=== PATIENT | female | born 1985 | race Caucasian/White ===

== ENCOUNTER 2021-04-07 12:57 | Emergency (ER) | payer OTHER ==
--- NOTE | 2021-04-07 13:00 | ERPHSYRPT ---
- History of Present Illness Time Seen by Provider: 04/07/21 13:00 Historian: patient, family Exam Limitations: no limitations Physician History: This is a 35-year-old obese white female who is 26 weeks and is a patient of both Dr. Ortega and while he and is injecting herself subcutaneously with prescribed Lovenox during her . She is using the pannus of bilateral lower quadrants. She is having tenderness in the injection site of the left lower quadrant. She has not had any fevers or chills. Because of the tenderness she has been experiencing over the last several days, she stopped using the left lower quadrant subcutaneous and skin region for Lovenox injection. She has no chest pain. She has no shortness of breath. She has no vaginal bleeding. She has no vaginal discharge. She had no nausea vomiting or diarrhea. Abdominal Pain Onset Location: LLQ Pain Radiation: no radiation Severity of Pain-Max: moderate Severity of Pain-Current: mild Modifying Factors: Improves With: nothing Associated Symptoms: denies symptoms Previous symptoms: no prior history Allergies/Adverse Reactions: orange juice Allergy (Verified 04/07/21 13:13) Home Medications: Enoxaparin Sodium [Enoxaparin Sodium] 40 mg SQ Q12HT 04/07/21 [History] Travel Risk - International Travel Have you traveled outside of the country in past 3 weeks: No - Coronavirus Screening Are you exhibiting any of the following symptoms?: No Close contact with a COVID-19 positive Pt in past 14-21 Days: No - Review of Systems Constitutional: No Symptoms Eyes: No Symptoms Ears, Nose, & Throat: No Symptoms Respiratory: No Symptoms Cardiac: No Symptoms Abdominal/Gastrointestinal: No Symptoms Genitourinary Symptoms: No Symptoms Musculoskeletal: No Symptoms Skin: Induration (With associated bruising left lower quadrant. It is superficial. No redness odor or drainage) Neurological: No Symptoms Psychological: No Symptoms Endocrine: No Symptoms Hematologic/Lymphatic: No Symptoms Immunological/Allergic: No Symptoms All Other Systems: Reviewed and Negative - Past Medical History Pertinent Past Medical History: Yes - Past Surgical History Past Surgical History: Yes - Nursing Vital Signs Nursing Vital Signs: Initial Vital Signs Temperature 97.6 F 04/07/21 13:03 Pulse Rate 97 H 04/07/21 13:03 Blood Pressure 117/74 04/07/21 13:03 O2 Sat by Pulse Oximetry 97 04/07/21 13:03 Pain Scale Pain Intensity 0 - Physical Exam General Appearance: no apparent distress, alert, anxiety, obese, other (Patient is happy and laughing) Eye Exam: PERRL/EOMI, eyes nml inspection Ears, Nose, Throat Exam: normal ENT inspection, moist mucous membranes Neck Exam: normal inspection, non-tender, supple, full range of motion Respiratory Exam: airway intact, No chest tenderness, No respiratory distress Gastrointestinal/Abdomen Exam: soft, normal bowel sounds, tenderness (Directly at the left lower quadrant pannus subcutaneous injection site. There is a thickness of induration without obvious abscess present in this area. There is no redness or cellulitis present. There is ecchymosis present. There is no odor and there is no drainage from the site. Patient does ) Pelvic Exam: not done Rectal Exam: not done Back Exam: normal inspection, normal range of motion, No CVA tenderness, No vertebral tenderness Extremity Exam: normal inspection, normal range of motion, pelvis stable Neurologic Exam: alert, oriented x 3, cooperative, site surveyor II-XII nml as tested, normal mood/affect, nml cerebellar function, nml station & gait, sensation nml Skin Exam: ecchymosis (Left lower quadrant, superficial), other (No cellulitis left lower quadrant) Lymphatic Exam: No adenopathy SpO2 Interpretation: normal O2 Delivery: Room Air - Course Nursing assessment & vital signs reviewed: Yes Ordered Tests: Active Orders 24 hr Category Date Time Status ABDOMINAL-LIMITED [US] Stat Exams 04/07/21 13:18 Completed - Progress Progress: unchanged, re-examined Progress Note: 04/07/21 14:23 Ultrasound of abdominal wall tenderness/indurated areanonspecific walled off subcutaneous fluid collection. Counseled pt/family regarding: diagnosis, need for follow-up, rad results - Departure Departure Disposition: Home Clinical Impression: Induration at injection site Condition: Stable Critical Care Time: No Referrals: BRADY ORTEGA [Primary Care Provider] - Additional Instructions: Do not use this site for injection. Keep the area clean daily with soap and water. Warm compresses, not directly on the skin to this area twice a day. Take your antibiotics as prescribed. Follow-up with your prescribing doctor for further management. Prescriptions: Cephalexin Mh 500 mg [Keflex 500 mg] 500 mg PO TID #21 capsule
[2021-04-07 13:13] VITALS: O2SAT 97
[2021-04-07 14:09] VITALS: BP 106/63; PULSE 86
--- NOTE | 2021-04-07 14:19 | XRAY ---
Indication: Left lower quadrant abdominal wall bruising/nodule. Current Lovenox therapy abdominal subcutaneous injections. Two-dimensional targeted soft tissue ultrasound of the left lower quadrant abdominal wall demonstrates a 2.8 x 1.7 x 1.8 cm nonspecific walled off subcutaneous fluid collection without abnormal color Doppler flow. No other solid/cystic mass or abnormal fluid collection.
== END 2021-04-07 14:38 | disposition home or self-care (01) ==
LOC: ED 12:57
DX: R23.4 Changes in skin texture (principal); R10.32 Left lower quadrant pain; Z33.1 Pregnant state, incidental
CPT/HCPCS: 76705; 99284

== ENCOUNTER 2022-04-09 17:39 | Emergency (ER) | payer BC, OTHER ==
[2022-04-09 18:47] VITALS: O2SAT 99
[2022-04-09 19:20] VITALS: BP 100/71; PULSE 77
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
--- NOTE | 2022-04-10 08:35 | XRAY ---
Indication: Left leg numbness 2 months. No acute injury. Multiple contiguous axial images obtained through the lumbar spine. Sagittal and coronal reformatted images obtained. Comparison: None There has been L4-L5 laminectomy and posterior fusion with intact bilateral fusion hardware producing extreme beam artifact limiting these levels. L5-S1 level demonstrates spinal canal and bilateral foraminal narrowing due to broad-based disc bulge and moderate bilateral degenerative facet hypertrophy. Remaining levels are negative for acute fracture, suspicious bony lesions, or large disc herniation. Sagittal and coronal reformatted images demonstrate normal lumbar alignment with vertebral body height/disc spaces maintained. Tiny superior L2 Schmorl node. No acute compression fracture or subluxation. Visualized noncontrasted soft tissues are unremarkable. Impression: 1. L4-L5 laminectomy with intact posterior fusion hardware producing beam artifact. 2. L5-S1 degenerative disc disease and tiny L2 Schmorl node. 3. Remaining CT lumbar spine without contrast exam is negative.
== END 2022-04-09 19:54 | disposition home or self-care (01) ==
LOC: ED 17:39
DX: M54.32 Sciatica, left side (principal); Z72.0 Tobacco use; Z28.310 Unvaccinated for COVID-19
CPT/HCPCS: 72131; 99283

== ENCOUNTER 2024-02-26 09:24 | Emergency (ER) | payer BC, OTHER ==
--- NOTE | 2024-02-26 09:28 | ERPHSYRPT ---
- History of Present Illness Time Seen by Provider: 02/26/24 09:28 Source: patient Exam Limitations: no limitations Physician History: This is a 38-year-old white female patient who woke up 2 days ago and had right posterior neck pain that has traveled into the [facility]. Patient has a history of sciatica in the past. Her neck is stiff and she is having trouble turning her head to and fro. She also states that she has had intermittent facial numbness. Patient smokes tobacco daily and occasionally uses marijuana. She did not hit her head. Patient drove herself into the emergency department today Timing/Duration: day(s), intermittent Method of Injury: other (No injury) Quality: sharp, aching Back Pain Location: paraspinous muscles (Cervical spine right side greater than left side) Severity of Pain-Max: moderate Severity of Pain-Current: mild Modifying Factors: Improves With: movement Associated Symptoms: denies symptoms Previous symptoms: no prior history Allergies/Adverse Reactions: diazepam [From Valium] Allergy (Verified 04/09/22 17:42) orange juice Allergy (Verified 04/09/22 17:42) Hx Influenza Vaccination/Date Given: No Hx Pneumococcal Vaccination/Date Given: No Travel Risk - International Travel Have you traveled outside of the country in past 3 weeks: No - Emerging Infectious Disease Are you exhibiting symptoms associated with any current EIDs: No - Review of Systems Constitutional: No Symptoms Eyes: No Symptoms Ears, Nose, & Throat: No Symptoms Respiratory: No Symptoms Cardiac: No Symptoms Abdominal/Gastrointestinal: No Symptoms Genitourinary Symptoms: No Symptoms Musculoskeletal: Neck Pain (Right side paraspinous muscles into the posterior head) Skin: No Symptoms Neurological: No Symptoms Psychological: Anxiety Endocrine: No Symptoms Hematologic/Lymphatic: No Symptoms Immunological/Allergic: No Symptoms All Other Systems: Reviewed and Negative - Past Medical History Pertinent Past Medical History: Yes Cardiac History: Deep Vein Thrombosis Other Medical History: hx of Pulmonary Embolus - Past Surgical History Past Surgical History: Yes Other Surgical History: spinal fusion - Social History Smoking Status: Current every day smoker How long have you smoked: years Exposure to second hand smoke: Yes Drug Use: marijuana Patient Lives Alone: No - Nursing Vital Signs Nursing Vital Signs: Initial Vital Signs Temperature 97.8 F 02/26/24 09:28 Pulse Rate 97 H 02/26/24 09:28 Respiratory Rate 20 02/26/24 09:28 Blood Pressure 134/74 02/26/24 09:28 O2 Sat by Pulse Oximetry 95 02/26/24 09:28 Pain Scale Pain Intensity [Posterior Neck 9 ] Pain Intensity 7 - Physical Exam General Appearance: no apparent distress, alert, anxiety Eye Exam: PERRL/EOMI, eyes nml inspection Ears, Nose, Throat Exam: normal ENT inspection, moist mucous membranes Neck Exam: normal inspection, supple, full range of motion, other (Pain in the distribution of the right trapezius muscle) Respiratory Exam: normal breath sounds, lungs clear, airway intact, No chest tenderness, No respiratory distress Cardiovascular Exam: regular rate/rhythm, normal heart sounds, normal peripheral pulses Gastrointestinal Exam: soft, normal bowel sounds, No tenderness Pelvic Exam: deferred Rectal Exam: not done Back Exam: normal inspection, normal range of motion, No CVA tenderness, No vertebral tenderness Extremity Exam: normal inspection, normal range of motion, pelvis stable Neurologic Exam: alert, oriented x 3, cooperative, diplomatic courier II-XII nml as tested, normal mood/affect, nml cerebellar function, nml station & gait, sensation nml, No motor deficits Skin Exam: normal color, warm, dry Lymphatic Exam: No adenopathy SpO2 Interpretation: normal O2 Delivery: Room Air - Course Nursing assessment & vital signs reviewed: Yes Ordered Tests: Active Orders 24 hr Category Date Time Status HEAD WITHOUT CONTRAST [CT] Stat Exams 02/26/24 09:55 Completed - Progress Progress: unchanged Progress Note: 02/26/24 10:06 My medical decision making and the assignment of low complexity to this patient's medical issue today is based on review of the patient's past medical history, review the patient's medication list, review of patient drug allergy list, history present illness and physical findings on examination. The workup in this patient includes CT scan of the head without contrast. Differential diagnosis includes migraine headache, muscle strain/cervical spine strain 02/26/24 10:50 CT scan of the head without contrast was interpreted by the radiologist and I reviewed the impression. This is a normal CT scan of the head without contrast. Counseled pt/family regarding: diagnosis, need for follow-up, rad results Medical Desision Making - Diagnostic Testing Diagnostic test were ordered, analyzed, and reviewed by me: Yes Radiological Interpretation: Reviewed by me, Teleradiologist Report - Risk of complications The pt has a mod risk of morbidity or mortality based on: Need for prescription drug management - Departure Departure Disposition: Home Clinical Impression: Acute strain of neck muscle Condition: Stable Critical Care Time: No Referrals: BRADY LANE [Primary Care Provider] - Follow up/PCP as directed Additional Instructions: Alternate ice and heat to area of tenderness. Take the medication as prescribed. Call your primary care provider today, 02/26/2024, to make arrangements for follow-up appointment to be seen in the next 3 to 5 days. You may also add Tylenol 650 mg orally every 4 hours and use of the TENS unit to help relieve your discomfort. Prescriptions: Prednisone 10 mg [Deltasone 10 mg] 10 mg PO TID #12 tablet Orphenadrine Citrate 100 mg [Norflex 100 MG Tablet] 100 mg PO BID #10 tab
[2024-02-26 10:38] VITALS: TEMP 97.7
--- NOTE | 2024-02-26 10:44 | XRAY ---
Indication: Headache and facial numbness. Multiple contiguous axial images obtained through the head without contrast. Comparison: None Normal appearing brain parenchyma, ventricles, and bony calvarium. Visualized paranasal sinuses and mastoid air cells are clear. Impression: Normal CT head without contrast exam.
[2024-02-26 11:12] VITALS: BP 114/66; PULSE 80; RESP 16; O2SAT 100
== END 2024-02-26 11:12 | disposition home or self-care (01) ==
LOC: ED 09:24
DX: S16.1XXA Strain of muscle, fascia and tendon at neck level, initial encounter (principal); R51.9 Headache, unspecified; Z72.0 Tobacco use
CPT/HCPCS: 70450; 99283

== ENCOUNTER 2024-12-02 06:27 | Emergency (ER) | payer OTHER ==
[2024-12-02 06:42] VITALS: PULSE 106; RESP 19; TEMP 98.4
[2024-12-02 07:27] VITALS: O2SAT 97
[2024-12-02] MEDS ORDERED: Norflex 60 MG/2 ML ONE (07:37)
[2024-12-02] MEDS ORDERED: TORAdol 30 mg Injection ONE (07:37)
[2024-12-02 07:38] LABS: Absolute Neutrophil Ct (ANC) 4.61 x10^3/uL (1.56-6.13); BASOPHIL % 0.5 % (0.1-1.2); Basophil (Absolute #) 0.04 x10^3/uL (0.01-0.08); Eosinophil % 1.1 % (0.7-5.8); Eosinophil (Absolute #) 0.08 x10^3/uL (0.04-0.36); Hematocrit 41.3 % (34.1-44.9); Hemoglobin 12.8 g/dL (11.2-15.7); IMMATURE GRAN # 0.02 x10^3u/L (0.001-0.031); IMMATURE GRAN % 0.3 % (0.001-0.429); Lymphocyte (Absolute #) 2.11 x10^3/uL (1.18-3.74); Lymphocytes % 27.9 % (19.3-51.7); Mean Cell Volume 76.9 fL (79.4-94.8); Mean Corpuscular Hemoglobin 23.8 pg (25.6-32.2); Mean Platelet Volume 10.7 fL (9.4-12.3); Monocyte (Absolute #) 0.69 x10^3/uL (0.24-0.86); Monocytes % 9.1 % (4.7-12.5); Neutrophil % 61.1 % (34.0-71.1); Platelet Count 319 x10^3/uL (182-369); Red Blood Count 5.37 x10^6/uL (3.93-5.22); Red Cell Distribution Width 15.9 % (11.7-14.4); White Blood Count 7.6 x10^3/uL (3.98-10.04)
--- NOTE | 2024-12-02 07:38 | ERPHSYRPT ---
- History of Present Illness Time Seen by Provider: 12/02/24 07:34 Source: patient Exam Limitations: no limitations Patient Subjective Stated Complaint: c/o back pain Triage Nursing Assessment: patient brought to ED with c/o right sided lower back pain. patient stated that yesterday she went to stand up and had a shooting pain in her lower back. patient rates pain 8/10. tenderness and pain with touch and certain movements, pulses normal in all extremeties, skin w/n/d, vitals wnl, gait steady, patient doesn't appear to be in any distress at this time. Physician History: 39-year-old female with history of chronic back pain with spinal fusion presented to the ER with complaint of sudden onset right flank/right lower back pain sharp shooting moderate to severe started when she is suddenly started up. No radiation to right lower extremity. No numbness tingling or weakness of lower extremities, no loss of bowel or bladder control/saddle anesthesia. Reports no nausea or vomiting. Denies any urinary complaints. Does have history of kidney stones patient reports her pain different than her routine back pain and kidney stone pain. Denies any fall or trauma. Allergies/Adverse Reactions: diazepam [From Valium] Allergy (Verified 12/02/24 06:43) Hives orange juice Allergy (Verified 12/02/24 06:43) Hives Hx Tetanus, Diphtheria Vaccination/Date Given: Yes Hx Influenza Vaccination/Date Given: No Hx Pneumococcal Vaccination/Date Given: No Travel Risk - International Travel Have you traveled outside of the country in past 3 weeks: No - Emerging Infectious Disease Are you exhibiting symptoms associated with any current EIDs: No - Review of Systems Constitutional: No Symptoms Ears, Nose, & Throat: No Symptoms Respiratory: No Symptoms Cardiac: No Symptoms Abdominal/Gastrointestinal: No Symptoms Genitourinary Symptoms: No Symptoms Musculoskeletal: Back Pain Skin: No Symptoms Neurological: No Symptoms Endocrine: No Symptoms - Past Medical History Pertinent Past Medical History: Yes Neurological History: No Pertinent History ENT History: No Pertinent History Cardiac History: Deep Vein Thrombosis Respiratory History: No Pertinent History Endocrine Medical History: No Pertinent History Musculoskeletal History: No Pertinent History GI Medical History: Gallbladder Disease History: No Pertinent History Psycho-Social History: No Pertinent History Female Reproductive Disorders: No Pertinent History Other Medical History: hx of Pulmonary Embolus, kidney stones - Past Surgical History Past Surgical History: Yes Other Surgical History: spinal fusion - Female History Hx Last Menstrual Period: a month ago Hx Now: No - Social History Smoking Status: Current some day smoker Drug Use: marijuana - Social Determinants of Health Will the patient participate in the screening: Yes Do you worry about a steady place to live?: No Do you have any problems with any of the following?: No known problems In the past 12 months,have you had to go without utilities?: No Transportation Issues: No Has anyone in your support network made you feel unsafe?: No Have you or anyone in your house had to go w/o enough food: No - Nursing Vital Signs Nursing Vital Signs: Initial Vital Signs Temperature 98.4 F 12/02/24 06:32 Pulse Rate 106 H 12/02/24 06:32 Respiratory Rate 19 12/02/24 06:32 Blood Pressure 130/80 12/02/24 06:32 O2 Sat by Pulse Oximetry 98 12/02/24 06:32 Pain Scale Pain Intensity [Right Back] 8 Pain Intensity 8 - Physical Exam General Appearance: no apparent distress Eye Exam: PERRL/EOMI Ears, Nose, Throat Exam: normal ENT inspection Neck Exam: normal inspection, full range of motion Respiratory Exam: normal breath sounds, lungs clear Cardiovascular Exam: regular rate/rhythm, normal heart sounds Gastrointestinal Exam: soft, normal bowel sounds, tenderness (Right flank) Back Exam: normal inspection, normal range of motion, CVA tenderness (Right side), muscle spasm (Right sacroiliac area/lumbar paraspinal area. No lumbar spinal tenderness), No vertebral tenderness Extremity Exam: normal inspection, normal range of motion Neurologic Exam: alert, oriented x 3, cooperative Skin Exam: normal color SpO2 Interpretation: normal SpO2: 97 O2 Delivery: Room Air Ordered Tests: Active Orders 24 hr Category Date Time Status ABDOMEN AND PELVIS W/0 CONTRAS [CT] Stat Exams 12/02/24 07:17 Completed CBC W DIFF Stat Lab 12/02/24 07:25 Completed CMP Stat Lab 12/02/24 07:25 Completed CULTURE,URINE Stat Lab 12/02/24 07:26 Received HCG QUALITATIVE, SERUM Stat Lab 12/02/24 07:25 Completed LIPASE Stat Lab 12/02/24 07:25 Completed LIPASE Stat Lab 12/02/24 09:16 Ordered UA W/RFX UR CULTURE Stat Lab 03/05/25 07:26 Completed Medication Summary Discontinued Medications Generic Name Dose Route Start Last Admin Trade Name Miguel PRN Reason Stop Dose Admin Ketorolac Tromethamine 30 mg 12/02/24 07:18 12/02/24 07:47 Ketorolac Tromethamine 30 Mg/Ml Inj IV 12/02/24 07:19 Not Given STAT ONE Ketorolac Tromethamine Confirm 12/02/24 07:37 Ketorolac Tromethamine 30 Mg/Ml Inj Administered 12/02/24 07:38 Dose 30 mg .ROUTE .STK-MED ONE Ketorolac Tromethamine 30 mg 12/02/24 07:46 12/02/24 07:47 Ketorolac Tromethamine 30 Mg/Ml Inj IM 12/02/24 07:47 30 mg STAT ONE Administration Orphenadrine Citrate 60 mg 12/02/24 07:18 12/02/24 07:47 Orphenadrine Citrate 60 Mg/2 Ml Vial IV 12/02/24 07:19 Not Given STAT ONE Orphenadrine Citrate Confirm 12/02/24 07:37 Orphenadrine Citrate 60 Mg/2 Ml Vial Administered 12/02/24 07:38 Dose 60 mg .ROUTE .STK-MED ONE Orphenadrine Citrate 60 mg 12/02/24 07:46 12/02/24 07:47 Orphenadrine Citrate 60 Mg/2 Ml Vial IM 12/02/24 07:47 60 mg STAT ONE Administration Lab/Rad Data: Laboratory Result Diagrams 12/02/24 07:25 12/02/24 07:25 Laboratory Results 12/02/24 12/02/24 12/02/24 Range/Units 07:26 07:25 07:25 WBC (3.98-10.04) x10^3/uL RBC (3.93-5.22) x10^6/uL Hgb (11.2-15.7) g/dL Hct (34.1-44.9) % MCV (79.4-94.8) fL MCH (25.6-32.2) pg MCHC (32.2-35.5) g/dL RDW (11.7-14.4) % Plt Count (182-369) x10^3/uL MPV (9.4-12.3) fL Gran % (34.0-71.1) % Immature Gran % (Auto) (0.001-0.429) % Nucleat RBC Rel Count (0.00-0.2) % Eos # (Auto) (0.04-0.36) x10^3/uL Immature Gran # (Auto) (0.001-0.031) x10^3u/L Absolute Lymphs (auto) (1.18-3.74) x10^3/uL Absolute Monos (auto) (0.24-0.86) x10^3/uL Absolute Nucleated RBC (0.00-0.012) x10^3u/L Lymphocytes % (19.3-51.7) % Monocytes % (4.7-12.5) % Eosinophils % (0.7-5.8) % Basophils % (0.1-1.2) % Absolute Granulocytes (1.56-6.13) x10^3/uL Basophils # (0.01-0.08) x10^3/uL Sodium 140 (135-145) mmol/L Potassium 4.2 (3.5-5.1) mmol/L Chloride 105 (98-107) mmol/L Carbon Dioxide 23 (22-30) mmol/L Anion Gap 15.8 H (5-15) MEQ/L BUN 15 (7-17) mg/dL Creatinine 0.61 (0.52-1.04) mg/dL Estimated GFR 116.6 ML/MIN Glucose 106 (74-106) mg/dL Calcium 9.2 (8.4-10.2) mg/dL Total Bilirubin 0.60 (0.2-1.3) mg/dL AST 26 (14-36) U/L ALT 22 (0-35) U/L Alkaline Phosphatase 85 (38-126) U/L Serum Total Protein 7.8 (6.3-8.2) g/dL Albumin 4.6 (3.5-5.0) g/dL Lipase 43 (23-300) U/L Serum HCG, Qual NEGATIVE (NEGATIVE) Urine Color Yellow (Yellow) Urine Appearance Clear (Clear) Urine pH 7.0 (4.6-8.0) Ur Specific [place] 1.025 (1.005-1.030) Urine Protein Negative (Negative) Urine Glucose (UA) Negative (Negative) mg/dL Urine Ketones Negative (Negative) Urine Blood Negative (Negative) Urine Nitrite Negative (Negative) Urine Bilirubin Negative (Negative) Urine Urobilinogen 1.0 A (0.2) mg/dL Ur Leukocyte Esterase Trace A (Negative) U Hyaline Cast (Auto) NONE SEEN (0-2) /LPF Urine Microscopic RBC 6-10 A (0-5) /HPF Urine Microscopic WBC 6-10 A (0-5) /HPF Ur Epithelial Cells Few (None Seen) /HPF Urine Bacteria Moderate A (None Seen) /HPF Urine Culture Reflexed YES (NO) 12/02/24 Range/Units 07:25 WBC 7.6 (3.98-10.04) x10^3/uL RBC 5.37 H (3.93-5.22) x10^6/uL Hgb 12.8 (11.2-15.7) g/dL Hct 41.3 (34.1-44.9) % MCV 76.9 L (79.4-94.8) fL MCH 23.8 L (25.6-32.2) pg MCHC 31.0 L (32.2-35.5) g/dL RDW 15.9 H (11.7-14.4) % Plt Count 319 (182-369) x10^3/uL MPV 10.7 (9.4-12.3) fL Gran % 61.1 (34.0-71.1) % Immature Gran % (Auto) 0.3 (0.001-0.429) % Nucleat RBC Rel Count 0.0 (0.00-0.2) % Eos # (Auto) 0.08 (0.04-0.36) x10^3/uL Immature Gran # (Auto) 0.02 (0.001-0.031) x10^3u/L Absolute Lymphs (auto) 2.11 (1.18-3.74) x10^3/uL Absolute Monos (auto) 0.69 (0.24-0.86) x10^3/uL Absolute Nucleated RBC 0.00 (0.00-0.012) x10^3u/L Lymphocytes % 27.9 (19.3-51.7) % Monocytes % 9.1 (4.7-12.5) % Eosinophils % 1.1 (0.7-5.8) % Basophils % 0.5 (0.1-1.2) % Absolute Granulocytes 4.61 (1.56-6.13) x10^3/uL Basophils # 0.04 (0.01-0.08) x10^3/uL Sodium (135-145) mmol/L Potassium (3.5-5.1) mmol/L Chloride (98-107) mmol/L Carbon Dioxide (22-30) mmol/L Anion Gap (5-15) MEQ/L BUN (7-17) mg/dL Creatinine (0.52-1.04) mg/dL Estimated GFR ML/MIN Glucose (74-106) mg/dL Calcium (8.4-10.2) mg/dL Total Bilirubin (0.2-1.3) mg/dL AST (14-36) U/L ALT (0-35) U/L Alkaline Phosphatase (38-126) U/L Serum Total Protein (6.3-8.2) g/dL Albumin (3.5-5.0) g/dL Lipase (23-300) U/L Serum HCG, Qual (NEGATIVE) Urine Color (Yellow) Urine Appearance (Clear) Urine pH (4.6-8.0) Ur Specific [place] (1.005-1.030) Urine Protein (Negative) Urine Glucose (UA) (Negative) mg/dL Urine Ketones (Negative) Urine Blood (Negative) Urine Nitrite (Negative) Urine Bilirubin (Negative) Urine Urobilinogen (0.2) mg/dL Ur Leukocyte Esterase (Negative) U Hyaline Cast (Auto) (0-2) /LPF Urine Microscopic RBC (0-5) /HPF Urine Microscopic WBC (0-5) /HPF Ur Epithelial Cells (None Seen) /HPF Urine Bacteria (None Seen) /HPF Urine Culture Reflexed (NO) - Progress Progress: improved, re-examined Progress Note: 12/02/24 09:20 39-year-old is evaluated in the ER for right low back pain with some flank tenderness as well. She has negative neuroexam in lower extremities, no cauda equina symptoms. She is given symptomatic treatment with Toradol and Norflex, reevaluation her pain is remarkably improved with improved mobility. Workup showed normal white count, fairly unremarkable chemistries, mild element of UTI and will start her on Keflex. Because of her history of kidney stones and right flank tenderness I have obtained CT abdomen pelvis without contrast which is negative for ureteral stone, does have cholelithiasis but patient has no tenderness. Also has right heterogenous adnexal mass/teratoma/dermoid cyst. Patient does not have any tenderness. I have discussed with Dr. Cardozo about dermoid cyst/teratoma, recommended outpatient follow-up with [facility] for further evaluation. I believe patient's symptoms are more of a acute on chronic low back strain, will continue with NSAIDs and muscle relaxants to go home and outpatient follow- up recommended. Discussed signs symptoms of worsening needing return to ER which she seems understanding. Complexity of problem addressed: Moderate acute Complexity of data reviewed/analyzed: Extensive Risk of morbidity/mortality/complication associated with current patient management: Moderate 12/02/24 09:24 Discussed with DrChandan: Heriberto Counseled pt/family regarding: lab results, diagnosis, need for follow-up, rad results Medical Desision Making - Independent Historian Additional History obtained from: Family - Discussion of managment Care discussed with:: specialist (Dr. Cardozo [facility] ANALYST) Reviewed:: Test results Agreed on:: Treatment plan, need for follow-up Will see patient: In office - Departure Departure Disposition: Home Clinical Impression: Low back strain, Teratoma, UTI (urinary tract infection) Condition: Stable Critical Care Time: No Referrals: ROSALINA NÚÑEZ, [facility] [Primary Care Provider] - Follow up with PCP 1 day BALBIR CARDOZO DO [ACTIVE STAFF] - Follow up/PCP as directed (Call for appointment for reevaluation) Instructions: Low Back Pain (DC) Additional Instructions: Take Tylenol/ibuprofen as needed. Follow-up with primary care/[facility] for reevaluation. Return to ER for worsening pain or if having numbness tingling weakness of lower extremities, loss of bowel or bladder control/saddle anesthesia etc. Prescriptions: Cephalexin Mh 500 mg [Keflex 500 mg] 500 mg PO TID #21 cap
[2024-12-02] MEDS: Norflex 60 MG/2 ML IV ONE (07:47)
[2024-12-02] MEDS: TORAdol 30 mg Injection IV ONE (07:47)
[2024-12-02] MEDS: Norflex 60 MG/2 ML IM ONE (07:47)
[2024-12-02] MEDS: TORAdol 30 mg Injection IM ONE (07:47)
[2024-12-02 07:48] LABS: Appearance Clear (Clear); Bacteria Moderate /HPF (None Seen); Bilirubin Negative (Negative); Blood Negative (Negative); Epithelial Cells Few /HPF (None Seen); Glucose, Urine Negative (Negative); Hyaline Casts NONE SEEN /LPF (0-2); Ketones Negative (Negative); Leukocyte Esterase Trace (Negative); Nitrite Negative (Negative); Protein,Urine Dip Negative (Negative); Specific Gravity 1.025 (1.005-1.030)
[2024-12-02 07:49] LABS: ALBUMIN 4.6 g/dL (3.5-5.0); ANION GAP 15.8 MEQ/L (5-15); BILIRUBIN,TOTAL 0.6 mg/dL (0.2-1.3); Calcium 9.2 mg/dL (8.4-10.2); Creatinine 1 0.61 mg/dL (0.52-1.04); EST GLOMERULAR FILTRATION RATE 116.6 ML/MIN; HCG SERUM TEST NEGATIVE (NEGATIVE); Potassium 4.2 mmol/L (3.5-5.1); Total Protein 7.8 g/dL (6.3-8.2)
--- NOTE | 2024-12-02 08:53 | XRAY ---
Indication: Pain. History kidney stones. Multiple contiguous axial images obtained through the abdomen and pelvis without contrast. Comparison: None Lung bases clear. Heart not enlarged. Noncontrasted stomach and bowel loops appears nonobstructed with normal appendix. There is a right adnexa heterogeneous mass measuring at least 7.7 x 4.3 x 5.0 cm demonstrating soft tissue, fat, and calcifications favoring ovarian dermoid cyst/teratoma. Gallbladder demonstrates a few gallstones, largest 2.3 cm. Nonobstructing 4 mm right lower renal calculus. Remaining liver, pancreas, spleen, adrenal glands, kidneys, ureters, bladder, uterus, and aorta are unremarkable for noncontrast exam. Osseous structures intact with minimal/mild generative changes throughout spine, L4-L5 fusion/laminectomy with grossly intact posterior hardware. Impression: 1. Right adnexa heterogeneous mass as detailed favoring ovarian dermoid cyst/teratoma. 2. Cholelithiasis. Sonogram may yield further information if clinically warranted. 3. Incidental nonobstructing right renal micro-calculus and chronic bony findings.
[2024-12-02 09:27] VITALS: BP 105/74
== END 2024-12-02 09:36 | disposition home or self-care (01) ==
LOC: ED 06:27
DX: S39.012A Strain of muscle, fascia and tendon of lower back, initial encounter (principal); D39.8 Neoplasm of uncertain behavior of other specified female genital organs; N39.0 Urinary tract infection, site not specified; M54.50 Low back pain, unspecified; R10.9 Unspecified abdominal pain; Z79.899 Other long term (current) drug therapy; Z72.0 Tobacco use
CPT/HCPCS: 36415; 74176; 80053; 81001; 83690; 84703; 85025; 87086; 96372; 99284; J1885; J2360

== ENCOUNTER 2024-12-18 10:25 | Emergency (ER) | payer OTHER ==
--- NOTE | 2024-12-18 10:27 | ERPHSYRPT ---
- History of Present Illness Time Seen by Provider: 12/18/24 10:27 Historian: patient, family Exam Limitations: no limitations Physician History: This is an overweight 39-year-old white female patient who arrives by private vehicle and is a patient of nurse practitioner Sheela with the complaint of right upper quadrant abdominal pain and right flank pain that began last evening. Patient admits to eating chicken and pasta as well as 2 slices of pizza. She has known cholelithiasis, known right renal micro calculus and a right adnexal mass favoring ovarian dermoid cyst over teratoma. Patient has associated nausea and vomiting symptoms as well. She does not have chest pain. She does not have shortness of breath. She has no lower abdominal pain or pelvic pain. Patient has a history of pulmonary embolus and DVT but is not on any anticoagulation therapy at this time. She occasionally uses marijuana and is a daily smoker of tobacco. She is on no medications at this time. She is allergic to diazepam. Timing/Duration: yesterday Activities at Onset: none Quality: sharpness Abdominal Pain Onset Location: RUQ, flank (Right side) Severity of Pain-Max: moderate Severity of Pain-Current: moderate Modifying Factors: Improves With: vomiting Associated Symptoms: loss of appetite, nausea, vomiting, No chest pain, No fever/chills, No shortness of breath Previous symptoms: same symptoms as today, recently seen, recently treated Allergies/Adverse Reactions: diazepam [From Valium] Allergy (Verified 12/18/24 10:35) Hives orange juice Allergy (Verified 12/18/24 10:35) Hives Hx Tetanus, Diphtheria Vaccination/Date Given: Yes Hx Influenza Vaccination/Date Given: No Hx Pneumococcal Vaccination/Date Given: No Travel Risk - International Travel Have you traveled outside of the country in past 3 weeks: No - Emerging Infectious Disease Are you exhibiting symptoms associated with any current EIDs: No - Review of Systems Constitutional: No Symptoms Eyes: No Symptoms Ears, Nose, & Throat: No Symptoms Respiratory: No Symptoms Cardiac: No Symptoms Abdominal/Gastrointestinal: Abdominal Pain (Upper quadrant) Genitourinary Symptoms: Flank Pain (Right side flank pain) Musculoskeletal: No Symptoms Skin: No Symptoms Neurological: No Symptoms Psychological: No Symptoms Endocrine: No Symptoms Hematologic/Lymphatic: No Symptoms Immunological/Allergic: No Symptoms All Other Systems: Reviewed and Negative - Past Medical History Pertinent Past Medical History: Yes Neurological History: No Pertinent History ENT History: No Pertinent History Cardiac History: Deep Vein Thrombosis Respiratory History: No Pertinent History Endocrine Medical History: No Pertinent History Musculoskeletal History: No Pertinent History GI Medical History: Gallbladder Disease History: No Pertinent History Psycho-Social History: No Pertinent History Female Reproductive Disorders: No Pertinent History Other Medical History: hx of Pulmonary Embolus, kidney stones - Past Surgical History Past Surgical History: Yes Other Surgical History: spinal fusion - Female History Hx Last Menstrual Period: a month ago - Social History Smoking Status: Current some day smoker Drug Use: marijuana - Social Determinants of Health Will the patient participate in the screening: Yes Do you worry about a steady place to live?: No In the past 12 months,have you had to go without utilities?: No Transportation Issues: No Has anyone in your support network made you feel unsafe?: No Have you or anyone in your house had to go w/o enough food: No - Nursing Vital Signs Nursing Vital Signs: Initial Vital Signs Temperature 98.4 F 12/18/24 10:37 Pulse Rate 80 12/18/24 10:37 Respiratory Rate 20 12/18/24 10:37 Blood Pressure 146/104 12/18/24 10:37 O2 Sat by Pulse Oximetry 100 12/18/24 10:37 Pain Scale Pain Intensity 9 - Physical Exam General Appearance: no apparent distress, alert, anxiety Eye Exam: PERRL/EOMI, eyes nml inspection Ears, Nose, Throat Exam: normal ENT inspection, moist mucous membranes Neck Exam: normal inspection, non-tender, supple Respiratory Exam: airway intact, No chest tenderness, No respiratory distress Cardiovascular Exam: regular rate/rhythm, normal heart sounds, normal peripheral pulses Gastrointestinal/Abdomen Exam: soft, normal bowel sounds, tenderness (Right upper quadrant to palpation), guarding (Right upper quadrant to palpation), No rebound Pelvic Exam: not done Rectal Exam: not done Back Exam: normal inspection, normal range of motion, No CVA tenderness Extremity Exam: normal inspection, normal range of motion, pelvis stable Neurologic Exam: alert, oriented x 3, cooperative, marine scientist II-XII nml as tested, nml cerebellar function, nml station & gait, sensation nml Skin Exam: normal color, warm, dry Lymphatic Exam: No adenopathy SpO2 Interpretation: normal O2 Delivery: Room Air - Course Nursing assessment & vital signs reviewed: Yes Ordered Tests: Active Orders 24 hr Category Date Time Status IV Insertion STAT Care 12/18/24 11:05 Active ABDOMEN AND PELVIS W/0 CONTRAS [CT] Stat Exams 12/18/24 11:06 Completed AMYLASE Stat Lab 12/18/24 Completed CBC W DIFF Stat Lab 12/18/24 Completed CMP Stat Lab 12/18/24 Completed CULTURE,URINE Stat Lab 12/18/24 12:40 Received HCG QUALITATIVE, SERUM Stat Lab 12/18/24 Completed LIPASE Stat Lab 12/18/24 Completed Lactic Acid Stat Lab 12/18/24 11:17 Completed UA W/RFX UR CULTURE Stat Lab 12/18/24 12:40 Completed Medication Summary Generic Name Dose Route Start Last Admin Trade Name Freq PRN Reason Stop Dose Admin Ceftriaxone Sodium 1 gm in 100 mls @ 200 mls/hr 12/18/24 13:20 Rocephin 1 Gm / 100 Ml Nacl IV 12/18/24 13:49 STAT ONE Tamsulosin HCl 0.4 mg 12/19/24 12:36 12/18/24 12:47 Tamsulosin Hcl 0.4 Mg Cap PO 12/19/24 12:37 0.4 mg STAT ONE Administration Discontinued Medications Generic Name Dose Route Start Last Admin Trade Name Freq PRN Reason Stop Dose Admin Diphenhydramine HCl 25 mg 12/18/24 12:35 12/18/24 12:51 Diphenhydramine Hcl 50 Mg/Ml Vial IV 12/18/24 12:36 25 mg STAT ONE Administration Diphenhydramine HCl Confirm 12/18/24 12:45 Diphenhydramine Hcl 50 Mg/Ml Vial Administered 12/18/24 12:46 Dose 50 mg .ROUTE .STK-MED ONE Hydromorphone HCl 1 mg 12/18/24 11:05 12/18/24 11:15 Hydromorphone 1 Mg/1ml Inj IV 12/18/24 11:06 1 mg STAT ONE Administration Hydromorphone HCl Confirm 12/18/24 11:14 Hydromorphone 1 Mg/1ml Inj Administered 12/18/24 11:15 Dose 1 mg .ROUTE .STK-MED ONE Sodium Chloride 1,000 mls @ 999 mls/hr 12/18/24 11:05 12/18/24 11:15 Sodium Chloride 0.9% 1000 Ml IV 12/18/24 12:05 999 mls/hr .Q1H1M STA Administration Sodium Chloride Confirm 12/18/24 11:14 Sodium Chloride 0.9% 1000 Ml Administered 12/18/24 11:15 Dose 1,000 mls @ ud .ROUTE .STK-MED ONE Ketorolac Tromethamine 30 mg 12/18/24 12:35 12/18/24 12:50 Ketorolac Tromethamine 30 Mg/Ml Inj IV 12/18/24 12:36 30 mg STAT ONE Administration Ketorolac Tromethamine Confirm 12/18/24 12:44 Ketorolac Tromethamine 30 Mg/Ml Inj Administered 12/18/24 12:45 Dose 30 mg .ROUTE .STK-MED ONE Ondansetron HCl 4 mg 12/18/24 11:05 12/18/24 11:15 Ondansetron Hcl 4 Mg/2 Ml Vial IV 12/18/24 11:06 4 mg STAT ONE Administration Ondansetron HCl Confirm 12/18/24 11:14 Ondansetron Hcl 4 Mg/2 Ml Vial Administered 12/18/24 11:15 Dose 4 mg .ROUTE .STK-MED ONE Prochlorperazine Edisylate 5 mg 12/18/24 12:35 12/18/24 12:53 Prochlorperazine Edisylate 10 Mg/2 Ml Vial IV 12/18/24 12:36 5 mg STAT ONE Administration Prochlorperazine Edisylate Confirm 12/18/24 12:45 Prochlorperazine Edisylate 10 Mg/2 Ml Vial Administered 12/18/24 12:46 Dose 10 mg .ROUTE .STK-MED ONE Tamsulosin HCl Confirm 12/18/24 12:45 Tamsulosin Hcl 0.4 Mg Cap Administered 12/18/24 12:46 Dose 0.4 mg .ROUTE .STK-MED ONE Lab/Rad Data: Laboratory Result Diagrams 12/18/24 Unknown 12/18/24 Unknown Laboratory Results 12/18/24 12/18/24 12/18/24 Range/Units Unknown Unknown Unknown WBC 7.2 (3.98-10.04) x10^3/uL RBC 4.94 (3.93-5.22) x10^6/uL Hgb 11.9 (11.2-15.7) g/dL Hct 38.2 (34.1-44.9) % MCV 77.3 L (79.4-94.8) fL MCH 24.1 L (25.6-32.2) pg MCHC 31.2 L (32.2-35.5) g/dL RDW 15.6 H (11.7-14.4) % Plt Count 311 (182-369) x10^3/uL MPV 10.8 (9.4-12.3) fL Gran % 67.1 (34.0-71.1) % Immature Gran % (Auto) 0.4 (0.001-0.429) % Nucleat RBC Rel Count 0.0 (0.00-0.2) % Eos # (Auto) 0.04 (0.04-0.36) x10^3/uL Immature Gran # (Auto) 0.03 (0.001-0.031) x10^3u/L Absolute Lymphs (auto) 1.75 (1.18-3.74) x10^3/uL Absolute Monos (auto) 0.53 (0.24-0.86) x10^3/uL Absolute Nucleated RBC 0.00 (0.00-0.012) x10^3u/L Lymphocytes % 24.2 (19.3-51.7) % Monocytes % 7.3 (4.7-12.5) % Eosinophils % 0.6 L (0.7-5.8) % Basophils % 0.4 (0.1-1.2) % Absolute Granulocytes 4.85 (1.56-6.13) x10^3/uL Basophils # 0.03 (0.01-0.08) x10^3/uL Sodium 139 (135-145) mmol/L Potassium 4.0 (3.5-5.1) mmol/L Chloride 106 (98-107) mmol/L Carbon Dioxide 23 (22-30) mmol/L Anion Gap 13.1 (5-15) MEQ/L BUN 14 (7-17) mg/dL Creatinine 0.53 (0.52-1.04) mg/dL Estimated GFR 120.6 ML/MIN Glucose 103 (74-106) mg/dL Lactic Acid (0.4-2.0) Calcium 8.6 (8.4-10.2) mg/dL Total Bilirubin 0.60 (0.2-1.3) mg/dL AST 28 (14-36) U/L ALT 18 (0-35) U/L Alkaline Phosphatase 87 (38-126) U/L Serum Total Protein 7.4 (6.3-8.2) g/dL Albumin 4.4 (3.5-5.0) g/dL Amylase 58 (30-110) U/L Lipase 44 (23-300) U/L Serum HCG, Qual NEGATIVE (NEGATIVE) Urine Color (Yellow) Urine Appearance (Clear) Urine pH (4.6-8.0) Ur Specific [place] (1.005-1.030) Urine Protein (Negative) Urine Glucose (UA) (Negative) mg/dL Urine Ketones (Negative) Urine Blood (Negative) Urine Nitrite (Negative) Urine Bilirubin (Negative) Urine Urobilinogen (0.2) mg/dL Ur Leukocyte Esterase (Negative) U Hyaline Cast (Auto) (0-2) /LPF Urine Microscopic RBC (0-5) /HPF Urine Microscopic WBC (0-5) /HPF Ur Epithelial Cells (None Seen) /HPF Urine Bacteria (None Seen) /HPF Urine Culture Reflexed (NO) 12/18/24 12/18/24 Range/Units 12:40 11:17 WBC (3.98-10.04) x10^3/uL RBC (3.93-5.22) x10^6/uL Hgb (11.2-15.7) g/dL Hct (34.1-44.9) % MCV (79.4-94.8) fL MCH (25.6-32.2) pg MCHC (32.2-35.5) g/dL RDW (11.7-14.4) % Plt Count (182-369) x10^3/uL MPV (9.4-12.3) fL Gran % (34.0-71.1) % Immature Gran % (Auto) (0.001-0.429) % Nucleat RBC Rel Count (0.00-0.2) % Eos # (Auto) (0.04-0.36) x10^3/uL Immature Gran # (Auto) (0.001-0.031) x10^3u/L Absolute Lymphs (auto) (1.18-3.74) x10^3/uL Absolute Monos (auto) (0.24-0.86) x10^3/uL Absolute Nucleated RBC (0.00-0.012) x10^3u/L Lymphocytes % (19.3-51.7) % Monocytes % (4.7-12.5) % Eosinophils % (0.7-5.8) % Basophils % (0.1-1.2) % Absolute Granulocytes (1.56-6.13) x10^3/uL Basophils # (0.01-0.08) x10^3/uL Sodium (135-145) mmol/L Potassium (3.5-5.1) mmol/L Chloride (98-107) mmol/L Carbon Dioxide (22-30) mmol/L Anion Gap (5-15) MEQ/L BUN (7-17) mg/dL Creatinine (0.52-1.04) mg/dL Estimated GFR ML/MIN Glucose (74-106) mg/dL Lactic Acid 1.3 (0.4-2.0) Calcium (8.4-10.2) mg/dL Total Bilirubin (0.2-1.3) mg/dL AST (14-36) U/L ALT (0-35) U/L Alkaline Phosphatase (38-126) U/L Serum Total Protein (6.3-8.2) g/dL Albumin (3.5-5.0) g/dL Amylase (30-110) U/L Lipase (23-300) U/L Serum HCG, Qual (NEGATIVE) Urine Color Yellow (Yellow) Urine Appearance Cloudy A (Clear) Urine pH 6.0 (4.6-8.0) Ur Specific [place] 1.020 (1.005-1.030) Urine Protein Trace A (Negative) Urine Glucose (UA) Negative (Negative) mg/dL Urine Ketones Negative (Negative) Urine Blood Moderate A (Negative) Urine Nitrite Negative (Negative) Urine Bilirubin Negative (Negative) Urine Urobilinogen 0.2 (0.2) mg/dL Ur Leukocyte Esterase Negative (Negative) U Hyaline Cast (Auto) 3-5 A (0-2) /LPF Urine Microscopic RBC 51-100 A (0-5) /HPF Urine Microscopic WBC 6-10 A (0-5) /HPF Ur Epithelial Cells Moderate A (None Seen) /HPF Urine Bacteria Moderate A (None Seen) /HPF Urine Culture Reflexed YES (NO) - Progress Progress: improved, pain not gone completely Progress Note: 12/18/24 11:17 My medical decision making and the assignment of moderate complexity to this p atient's medical issue today is based on review of the patient's past medical history, review the patient's medication list, review the patient drug allergy list, history present illness and physical findings on examination. The workup in this patient includes placement of intravenous line, infusion of normal saline solution, infusion of Dilaudid, infusion of Zofran, CT scan of the abdomen pelvis without contrast, urinalysis, serum hCG, amylase, lipase, CBC, CMP, lactic acid level. Differential diagnosis includes but is not limited to cholecystitis/cholelithiasis, pancreatitis, pyelonephritis, ureterolithiasis, colitis, bowel obstruction This patient's symptoms may be related to her cholelithiasis. She might show cholecystitis on her CT scan. If her pancreas enzymes and liver enzymes are significantly elevated, we will order a gallbladder ultrasound at that time. If we are able to control her pain and nausea and her liver enzymes as well as pancreas enzymes are within normal limits, we will control her pain and nausea as an outpatient and she can follow-up at her scheduled date and time for her outpatient gallbladder ultrasound that has been scheduled for December 22, 2024. 12/18/24 11:57 I interpreted the patient's laboratory data results. Based on the laboratory data results, patient does have a urinary tract infection. There are no other acute, emergent medical issues. 12/18/24 12:33 CT scan of the abdomen pelvis without contrast was interpreted by the radiologist and I reviewed the impression. The impression states new, 4 mm distal right ureteral calculus with obstructive uropathy with moderate hydronephrosis and renal edema and prominent right ureter. There is stable cholelithiasis and stable right ovarian dermoid cyst/teratoma. Per our referral process to Dr. Gardiner, we will fax the information to his office, they will review it and then contact the patient. 12/18/24 12:38 12/18/24 13:23 Counseled pt/family regarding: lab results, diagnosis, need for follow-up, rad results Medical Desision Making - Independent Historian Additional History obtained from: Family - Diagnostic Testing Diagnostic test were ordered, analyzed, and reviewed by me: Yes Radiological Interpretation: Reviewed by me, Teleradiologist Report - Risk of complications The pt has a mod risk of morbidity or mortality based on: Need for prescription drug management - Departure Departure Disposition: Home Clinical Impression: Right ureteral calculus Condition: Stable Critical Care Time: No Referrals: ROSALINA NÚÑEZ NP [Primary Care Provider] - Follow up/PCP as directed Additional Instructions: Clear liquid diet only. Avoid fatty greasy spicy foods. Take your medications as prescribed. Call your primary care provider today, 12/18/2024, to update them on your visit to the emergency department today. Keep your outpatient appointment for your gallbladder ultrasound. Take ibuprofen 600 mg orally with food 3 times a day for 5 days. The urologist office will be contacting you and provide you with a follow-up appointment date and time. If your symptoms worsen over the weekend, you may always return to our emergency department. However, recall we do not have urology services here in our hospital. Other options include going to an emergency departments where there are urologic services including [facility] in [place] or [facility] in [facility]. Prescriptions: Ondansetron ODT 4 MG [Zofran Odt 4 mg] 4 mg PO Q6H PRN PRN #10 tablet PRN Reason: Vomiting Hydrocodone/APAP 5/325 [[place] 5/325 mg] 1 each PO Q8H PRN PRN #6 tablet MDD 3 PRN Reason: Pain Ciprofloxacin [Cipro 500 MG] 500 mg PO BID #14 tablet Tamsulosin HCl 0.4 mg [Flomax 0.4 MG] 0.4 mg PO DAILY #7 cap
[2024-12-18 10:42] VITALS: TEMP 98.4
[2024-12-18] MEDS ORDERED: Hydromorphone 1 mg/ml Injection ONE (11:14)
[2024-12-18] MEDS ORDERED: Zofran 4 MG/2 ML VIAL ONE (11:14)
[2024-12-18] MEDS ORDERED: Sodium Chloride 0.9% 1000 ML 1,000 ML ONE (11:14)
[2024-12-18] MEDS: Sodium Chloride 0.9% 1000 ML 1,000 ML IV STA (11:15)
[2024-12-18] MEDS: Hydromorphone 1 mg/ml Injection IV ONE (11:15)
[2024-12-18] MEDS: Zofran 4 MG/2 ML VIAL IV ONE (11:15)
[2024-12-18 11:18] LABS: Absolute Neutrophil Ct (ANC) 4.85 x10^3/uL (1.56-6.13); BASOPHIL % 0.4 % (0.1-1.2); Basophil (Absolute #) 0.03 x10^3/uL (0.01-0.08); Eosinophil % 0.6 % (0.7-5.8); Eosinophil (Absolute #) 0.04 x10^3/uL (0.04-0.36); Hematocrit 38.2 % (34.1-44.9); Hemoglobin 11.9 g/dL (11.2-15.7); IMMATURE GRAN # 0.03 x10^3u/L (0.001-0.031); IMMATURE GRAN % 0.4 % (0.001-0.429); Lymphocyte (Absolute #) 1.75 x10^3/uL (1.18-3.74); Lymphocytes % 24.2 % (19.3-51.7); Mean Cell Volume 77.3 fL (79.4-94.8); Mean Corpuscular Hemoglobin 24.1 pg (25.6-32.2); Mean Corpuscular Hgb Concent. 31.2 g/dL (32.2-35.5); Mean Platelet Volume 10.8 fL (9.4-12.3); Monocyte (Absolute #) 0.53 x10^3/uL (0.24-0.86); Monocytes % 7.3 % (4.7-12.5); Neutrophil % 67.1 % (34.0-71.1); Platelet Count 311 x10^3/uL (182-369); Red Blood Count 4.94 x10^6/uL (3.93-5.22); Red Cell Distribution Width 15.6 % (11.7-14.4); White Blood Count 7.2 x10^3/uL (3.98-10.04)
[2024-12-18 11:31] LABS: ALBUMIN 4.4 g/dL (3.5-5.0); ANION GAP 13.1 MEQ/L (5-15); BILIRUBIN,TOTAL 0.6 mg/dL (0.2-1.3); Calcium 8.6 mg/dL (8.4-10.2); Creatinine 1 0.53 mg/dL (0.52-1.04); EST GLOMERULAR FILTRATION RATE 120.6 ML/MIN; HCG SERUM TEST NEGATIVE (NEGATIVE); Total Protein 7.4 g/dL (6.3-8.2)
--- NOTE | 2024-12-18 12:09 | XRAY ---
Indication: Right flank pain. Multiple contiguous axial images obtained through the abdomen and pelvis without contrast using renal stone protocol. Comparison: December 02, 2024. Lung bases remain clear. Heart not enlarged. Previous 4 mm right renal calculus has passed now seen distal right ureter approximately 3-4 cm proximal to UVJ. Proximal right ureter now prominent up to 8-9 mm long with moderate hydronephrosis and renal edema favoring obstructive uropathy. Noncontrast stomach and bowel loops remain nonobstructed. Normal appendix. Grossly stable 7.7 x 4.3 x 5.0 cm right ovarian dermoid cyst/teratoma and multiple gallstones. No free fluid/air. Remaining liver, pancreas, spleen, adrenal glands, left kidney, left ureter, bladder, uterus, and aorta are unremarkable for noncontrast exam. Osseous structures again demonstrates degenerative changes throughout spine and L4-L5 fusion/laminectomy with beam artifact from posterior hardware. Impression: 1. New 4 mm distal right ureter calculus producing obstructive uropathy as detailed. 2. Stable cholelithiasis, right ovarian dermoid cyst/teratoma, and chronic bony findings.
[2024-12-18] MEDS ORDERED: TORAdol 30 mg Injection ONE (12:44)
[2024-12-18] MEDS ORDERED: BENADRYL 50 MG/ML ONE (12:45)
[2024-12-18] MEDS ORDERED: Compazine 10 MG/2 ML ONE (12:45)
[2024-12-18] MEDS ORDERED: Flomax 0.4 MG ONE (12:45)
[2024-12-18] MEDS: Flomax 0.4 MG PO ONE (12:47)
[2024-12-18] MEDS: TORAdol 30 mg Injection IV ONE (12:50)
[2024-12-18] MEDS: BENADRYL 50 MG/ML IV ONE (12:51)
[2024-12-18] MEDS: Compazine 10 MG/2 ML IV ONE (12:53)
[2024-12-18 13:14] LABS: Appearance Cloudy (Clear); Bacteria Moderate /HPF (None Seen); Bilirubin Negative (Negative); Blood Moderate (Negative); Epithelial Cells Moderate /HPF (None Seen); Glucose, Urine Negative (Negative); Ketones Negative (Negative); Leukocyte Esterase Negative (Negative); Nitrite Negative (Negative); Protein,Urine Dip Trace (Negative); RBC 51-100 /HPF (0-5); Urobilinogen 0.2 mg/dL (0.2)
[2024-12-18] MEDS ORDERED: ROCEPHIN 1 GM / 100 ML NaCl 1 GM/100 ML IVPB IV ONE (13:29)
[2024-12-18] MEDS: ROCEPHIN 1 GM / 100 ML NaCl 1 GM/100 ML IVPB IV ONE (13:32)
[2024-12-18 13:36] VITALS: BP 116/79; PULSE 62; RESP 13; O2SAT 97
== END 2024-12-18 14:29 | disposition home or self-care (01) ==
LOC: ED 10:25
DX: N13.2 Hydronephrosis with renal and ureteral calculous obstruction (principal); N39.0 Urinary tract infection, site not specified; R10.11 Right upper quadrant pain; R10.9 Unspecified abdominal pain; R11.2 Nausea with vomiting, unspecified; Z79.891 Long term (current) use of opiate analgesic; Z79.899 Other long term (current) drug therapy; Z72.0 Tobacco use
CPT/HCPCS: 36415; 74176; 80053; 81001; 82150; 83605; 83690; 84703; 85025; 87086; 96374; 96375; 99284; 99285; J0696; J1171; J1200; J1885; J2405; A9270-GY